=== PATIENT | female | born 1955 | race African-American/Black ===

== ENCOUNTER 2017-12-31 12:12 | Emergency (ER) | payer MEDICAID, OTHER ==
[~2017-12-31] VITALS: Ht 165.1 cm; Wt 82.0 kg
[2017-12-31 14:47] LABS: BASOPHILS % 0.4 % (0.0-2.0); EOSINOPHILS % 1.6 % (0.0-5.0); HEMATOCRIT. 40.3 % (36.0-48.0); HEMOGLOBIN. 12.9 g/dL (12.0-16.0); LYMPHOCYTES % 12.1 % (20.0-50.0); MEAN CORPUSCULAR HEMOGLOBIN 26.6 pg (28.0-32.0); MEAN CORPUSCULAR VOLUME 82.8 fL (81.0-99.0); MEAN PLATELET VOLUME 8.5 fl (7.4-10.4); NEUTROPHILS % 78.9 % (40.0-76.0); PLATELET 255 x1000/uL (130-400); RED BLOOD CELL COUNT 4.86 mill/uL (4.2-5.4); RED CELL DISTRIBUTION WIDTH 14.9 % (11.6-14.6)
[2017-12-31] MEDS: ONDANSETRON HCL 4MG/2ML VIAL IV STA (14:47)
[2017-12-31] MEDS: SODIUM CHLORIDE 0.9% 1,000 ML IV ONE (14:47)
[2017-12-31 14:55] LABS: INR 1.1; PROTHROMBIN TIME 11.2 sec (9.4-11.6)
[2017-12-31 15:00] LABS: CHLORIDE 104 mEq/L (98-107)
[2017-12-31 16:20] VITALS: BP 123/65
== END 2017-12-31 16:20 | disposition home or self-care (01) ==
LOC: ER 12:12
DX: K64.9 Unspecified hemorrhoids (principal); K59.00 Constipation, unspecified; F17.200 Nicotine dependence, unspecified, uncomplicated; E11.9 Type 2 diabetes mellitus without complications; I10 Essential (primary) hypertension
CPT/HCPCS: 36415; 80053; 83690; 85025; 85610; 86850; 86900; 86901; 96361; 96374; 99284; J2405; J7030